=== PATIENT | female | born 1995 | race Hispanic/Latino ===

== ENCOUNTER 2017-09-02 12:42 | Inpatient (IN) | payer MEDICAID ==
[2017-09-02] MEDS ORDERED: LACTATED RINGERS 1000ML 1,000 ML IV PRN (12:58)
[2017-09-02] MEDS ORDERED: OXYTOCIN 10 USP UNITS/ML 20 UNIT in LACTATED RINGERS 1000ML 1,000 ML IV SCH (13:00)
[2017-09-02] MEDS ORDERED: OXYTOCIN-LR 20 UNITS/1000 ML 1,000 ML IV SCH (13:00)
[2017-09-02 13:58] LABS: APPEARANCE,URINE TURBID (CLEAR); BILIRUBIN,URINE SMALL (NEGATIVE); COLOR,URINE YELLOW (YELLOW); GLUCOSE, URINE (UA) NEGATIVE (NEGATIVE); KETONES,URINE NEGATIVE (NEGATIVE); LEUKOCYTE ESTERASE ,URINE MODERATE (NEGATIVE); NITRATE,URINE NEGATIVE (NEGATIVE); OCCULT BLOOD,URINE SMALL (NEGATIVE); PH,URINE 5.5 (5.0-8.0); PROTEIN,URINE 100 (NEGATIVE)
[2017-09-02 14:04] LABS: AMPHET/METH SCREEN,URINE NEGATIVE (NEGATIVE); BARBITURATE SCREEN, URINE NEGATIVE (NEGATIVE); BENZODIAZEPINES SCREEN,URINE NEGATIVE (NEGATIVE); CANNABINOID SCREEN,URINE NEGATIVE (NEGATIVE); COCAINE SCREEN,URINE NEGATIVE (NEGATIVE); OPIATE SCREEN,URINE NEGATIVE (NEGATIVE); PHENCYCLIDINE SCREEN,URINE NEGATIVE (NEGATIVE)
[2017-09-02 14:11] LABS: HEMATOCRIT 33.5 % (36-48); MEAN CORPUSCULAR HEMOGLOBIN 25.6 pg (27.0-33.0); MEAN CORPUSCULAR HGB CONC 32.4 g/dL (32.0-36.0); MEAN CORPUSCULAR VOLUME 79.1 fL (80-100); PLATELET COUNT (AUTO) 331 K/uL (130-400); RED BLOOD CELL COUNT(AUTO) 4.24 MIL/uL (4.00-5.50); RED CELL DISTRIBUTION WIDTH 15.7 % (11.0-15.5); WHITE BLOOD COUNT (AUTO) 11.4 K/uL (4.8-10.8)
[2017-09-02 14:12] LABS: RBC,URINE 0-1 /HPF (0-1); WBC,URINE >100 /HPF (0-1)
[2017-09-02 14:13] LABS: BACTERIA,URINE Moderate /HPF (None Seen); MUCUS,URINE Few LPF (None Seen); SQUAMOUS EPITHELIAL CELL,UR Few /HPF (0-2)
[2017-09-02] MEDS ORDERED: LACTATED RINGERS 1000ML 1,000 ML IV ONE (14:27)
[2017-09-02] MEDS ORDERED: OXYTOCIN 10 USP UNITS/ML ONE ×2 (14:28→18:27)
[2017-09-02] MEDS ORDERED: PROMETHAZINE HCL 25 MG/ML 1ML AMPULE IM SCH (15:30)
[2017-09-02] MEDS ORDERED: MEPERIDINE-PF 50 MG/ML SYG IVP SCH (15:30)
[2017-09-02] MEDS ORDERED: MEPERIDINE-PF 25 MG/ML SYG ONE (16:45)
[2017-09-02] MEDS ORDERED: MEPERIDINE-PF 25 MG/ML SYG IVP ONE (17:45)
[2017-09-02] MEDS ORDERED: WITCH HAZEL 1 PAD TP PRN (18:15)
[2017-09-02] MEDS ORDERED: MEASLES/MUMPS/RUBELLA VACCINE, LIVE 0.5 ML/VIAL SQ PRN (18:15)
[2017-09-02] MEDS ORDERED: LANOLIN 30GM OINTMENT TP PRN (18:15)
[2017-09-02] MEDS ORDERED: DIPH,PERTUSS(ACELL),TET VAC/PF 0.5 ML VIAL IM PRN (18:15)
[2017-09-02] MEDS ORDERED: BENZOCAINE/LANOLIN/ALOE VERA 60 ML AEROSOL TP PRN (18:15)
[2017-09-02] MEDS ORDERED: ACETAMINOPHEN 325 MG TAB PO PRN (18:15)
[2017-09-02 19:04] VITALS: BP 111/70
[2017-09-02 19:34] VITALS: BP 101/70
[2017-09-02] MEDS: DOCUSATE SODIUM 100 MG CAP PO SCH (20:50)
[2017-09-02] MEDS: IBUPROFEN 800 MG TAB PO PRN (20:52)
[2017-09-02 23:16] VITALS: BP 117/68
[2017-09-03 03:35] VITALS: BP 130/72
[2017-09-03 06:19] LABS: HEPATITIS Bs ANTIGEN SCREEN P Negative (Negative)
[2017-09-03 06:30] LABS: HEMATOCRIT 29.3 % (36-48); MEAN CORPUSCULAR HEMOGLOBIN 26.7 pg (27.0-33.0); MEAN CORPUSCULAR HGB CONC 33.5 g/dL (32.0-36.0); MEAN CORPUSCULAR VOLUME 79.7 fL (80-100); PLATELET COUNT (AUTO) 268 K/uL (130-400); RED BLOOD CELL COUNT(AUTO) 3.67 MIL/uL (4.00-5.50); RED CELL DISTRIBUTION WIDTH 15.5 % (11.0-15.5); WHITE BLOOD COUNT (AUTO) 12.9 K/uL (4.8-10.8)
[2017-09-03 07:35] VITALS: BP 113/78
[2017-09-03] MEDS: DOCUSATE SODIUM 100 MG CAP PO SCH (08:59)
[2017-09-03] MEDS: IBUPROFEN 800 MG TAB PO PRN (09:01)
[2017-09-03 11:54] VITALS: BP 116/68
[2017-09-03 15:51] VITALS: BP 110/58
== END 2017-09-03 18:35 | disposition home or self-care (01) | DRG 560 ==
LOC: OBSVTOIN 12:42 → LDH 12:42 → WSH 19:01
PROVIDERS: ADMIT Obstetrics & Gynecology; ATTEND Obstetrics & Gynecology
PROC: 10E0XZZ Delivery of Products of Conception, External Approach (ICD-10-PCS; principal; 2017-09-02)
PROC: 10907ZC Drainage of Amniotic Fluid, Therapeutic from Products of Conception, Via Natural or Artificial Opening (ICD-10-PCS; 2017-09-02)
PROC: 3E0234Z Introduction of Serum, Toxoid and Vaccine into Muscle, Percutaneous Approach (ICD-10-PCS; 2017-09-03)
DX: O80 Encounter for full-term uncomplicated delivery (principal); Z23 Encounter for immunization; Z37.0 Single live birth; Z3A.37 37 weeks gestation of pregnancy
CPT/HCPCS: 36415; 80305; 81001; 85027; 86592; 86850; 86900; 86901; 87340; 90715; A4351; J2175; J2550; J2590; J7120

== ENCOUNTER → 2021-09-05 | Outpatient (CLI) | payer OTHER | END | disposition home or self-care (01) | LOC: DTH 10:11 | PROVIDERS: ATTEND Surgery | DX: E66.01 Morbid (severe) obesity due to excess calories (principal); G47.33 Obstructive sleep apnea (adult) (pediatric); E78.00 Pure hypercholesterolemia, unspecified; K76.0 Fatty (change of) liver, not elsewhere classified | CPT/HCPCS: 97803 ==

== ENCOUNTER → 2021-10-15 | Outpatient (CLI) | payer OTHER | END | disposition home or self-care (01) | LOC: DTH 13:22 | PROVIDERS: ATTEND Surgery | DX: E66.01 Morbid (severe) obesity due to excess calories (principal) | CPT/HCPCS: 97803 ==

== ENCOUNTER → 2022-02-22 | Outpatient (CLI) | payer MEDICAID ==
[~2022-02-22] MED LIST: ASPI-1190 PO
== END | disposition home or self-care (01) ==
LOC: SLP 20:37
PROVIDERS: ATTEND Surgery
DX: G47.33 Obstructive sleep apnea (adult) (pediatric) (principal)
CPT/HCPCS: 95810

== ENCOUNTER 2022-03-02 07:37 | Day surgery (SDC) | payer MEDICAID ==
[2022-03-02] VITALS (9 sets, daily range): BP systolic 83–117; BP diastolic 47–77
[~2022-03-02] VITALS: Ht 157.5 cm; Wt 105.2 kg
[2022-03-02] MEDS ORDERED: 0.9%NACL 1000ML 1,000 ML IV ONE (07:53)
[2022-03-02] MEDS ORDERED: FENTANYL CITRATE PF 50 MCG/1 ML 2ML VIAL ONE (08:36)
[2022-03-02] MEDS ORDERED: PROPOFOL 10 MG/ML 20ML VIAL IV ONE (08:37)
[2022-03-02] MEDS ORDERED: MIDAZOLAM HCL 1 MG/ML 2ML VIAL ONE (08:37)
== END 2022-03-02 09:35 | disposition home or self-care (01) ==
LOC: DAH 07:37
PROVIDERS: ATTEND Surgery
DX: K21.9 Gastro-esophageal reflux disease without esophagitis (principal); K29.70 Gastritis, unspecified, without bleeding; G43.909 Migraine, unspecified, not intractable, without status migrainosus; F32.A Depression, unspecified; E66.01 Morbid (severe) obesity due to excess calories; Z90.49 Acquired absence of other specified parts of digestive tract; Z68.41 Body mass index [BMI] 40.0-44.9, adult; Z79.899 Other long term (current) drug therapy
CPT/HCPCS: 71045; 87426; 93005; 43239; 81025; J3010; J7030 ×2; J2250; J3490; A4620; A4215 ×2; A4223; A4222; A4221; A4663; A4606; J2704